=== PATIENT | female | born 1950 | race Caucasian/White ===

== ENCOUNTER 2022-07-30 14:11 | Emergency (ER) | payer MEDICARE, MEDICAID ==
[~2022-07-30] VITALS: Ht 154.9 cm; Wt 97.5 kg
[~2022-07-30 14:11] MED LIST: BENA20TA75 PO
--- NOTE | 2022-07-30 14:24 | NUR ---
Patient to ER bed 4 to gown for evaluation. Side rails up. Report given to ARLETTE Love
--- NOTE | 2022-07-30 14:24 | NUR ---
[facility] PT CAUGHT TOE ON RAISED GROUND & FELL FORWARD. C/O PAIN TO LFT ELBOW & KNEE, POSTERIOR NECK/RIGHT SHOULDER AREA 10/07. MED HX OF CVA, HTN, ANXIETY. VSS. PLACED ON MONITOR.
[2022-07-30 14:25] VITALS: BP_SYST 154
--- NOTE | 2022-07-30 14:27 | NUR ---
DR. CONNOLLY AT BEDSIDE TO ASSESS PT.
--- NOTE | 2022-07-30 14:30 | NUR ---
OFFERED COLD PACK FOR TOPICAL PAIN RELIEF. PATIENT REFUSED.
--- NOTE | 2022-07-30 15:21 | NUR ---
PATIENT LEFT TO RADIOLOGY FOR TESTING
--- NOTE | 2022-07-30 16:10 | NUR ---
PATIENT RETURNED FROM RADIOLOGY
[2022-07-30] MEDS ORDERED: IBUP-1969 PO (16:11)
[2022-07-30] MEDS ORDERED: TRAM50TA2 PO (16:11)
[2022-07-30 16:43] VITALS: BP_SYST 146
--- NOTE | 2022-07-30 16:43 | NUR ---
Patient given written and verbal discharge instructions and verbalizes understanding. ER MD CONNOLLY discussed with patient the results and treatment provided. Patient in stable condition. ID arm band removed. Rx of IBUPROFEN, TRAMADOL given. Patient educated on pain management and to follow up with PMD. Pain Scale 2/10. Opportunity for questions provided and answered. Medication side effect fact sheet provided.
== END 2022-07-30 16:43 | disposition home or self-care (01) ==
LOC: SED 14:11
DX: S13.4XXA Sprain of ligaments of cervical spine, initial encounter (principal); S83.92XA Sprain of unspecified site of left knee, initial encounter; S53.402A Unspecified sprain of left elbow, initial encounter; I10 Essential (primary) hypertension; Z79.899 Other long term (current) drug therapy; W18.40XA Slipping, tripping and stumbling without falling, unspecified, initial encounter; Y93.89 Activity, other specified; Y92.89 Other specified places as the place of occurrence of the external cause; Y99.8 Other external cause status
CPT/HCPCS: 72125-TC; 73564; 76376; 99284